=== PATIENT | male | born 1955 | race Caucasian/White ===

== ENCOUNTER 2019-10-10 12:01 | Emergency (ER) | payer OTHER ==
[~2019-10-10] VITALS: Ht 177.8 cm; Wt 129.3 kg
[2019-10-10 12:11] VITALS: Ht 177.8 cm; Wt 129.3 kg
[2019-10-10 13:24] LABS: CALCIUM 9.2 mg/dL (8.5-10.1); CARBON DIOXIDE 30.6 mmol/L (21-32); CHLORIDE SERUM 104 mmol/L (98-107); CREATININE SERUM 1.2 mg/dL (0.7-1.3); GFR1 > 60 mL/min; GLUCOSE SERUM 106 mg/dL (74-106); POTASSIUM SERUM 4.4 mmol/L (3.5-5.1); SODIUM SERUM 140 mmol/L (136-145)
[2019-10-10 13:45] VITALS: BP 150/76
== END 2019-10-10 13:45 | disposition home or self-care (01) ==
LOC: ED 12:01
PROVIDERS: Emergency Medicine
DX: N12 Tubulo-interstitial nephritis, not specified as acute or chronic (principal); Z87.442 Personal history of urinary calculi
CPT/HCPCS: J1885